=== PATIENT | male | born 1995 | race Caucasian/White ===

== ENCOUNTER 2020-08-17 20:07 | Emergency (ER) | payer OTHER ==
[~2020-08-17] VITALS: Ht 170.2 cm; Wt 81.6 kg
[~2020-08-17 20:07] MED LIST: AMOX-CLAV 875-125 MG TABLET
--- NOTE | 2020-08-17 20:15 | NUR ---
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 PATIENT IS A/OX 4, RR EVEN AND UNLABORED, NO SOB NOTED AT THIS TIME. PATIENT CONNECTED TO [employer] AND POX. WILL CONTINUE TO MONITOR.
[2020-08-17] MEDS: KETOROLAC TROMETHAMINE INJ 30 MG/ML VIAL IV ONE (21:41)
[2020-08-17] MEDS: IV NS 0.9% 1,000 ML BAG IV ONE (21:42)
[2020-08-17 21:58] LABS: BASOPHILS % (AUTO) 0.4 % (0.0-2.0); EOSINOPHILS % (AUTO) 0.4 % (0.0-6.0); HEMATOCRIT 42 % (39-51); HEMOGLOBIN 14.2 g/dL (13.5-17.5); LYMPHOCYTES % (AUTO) 21.3 % (20.0-44.0); MEAN CORPUSCULAR HGB CONC 34 g/dl (31.0-36.0); MEAN CORPUSCULAR VOLUME 94 fL (80-96); MONOCYTES # (AUTO) 0.5 K/uL (0.1-1.30); MONOCYTES % (AUTO) 5.8 % (2.0-12.0); NEUTROPHILS # (AUTO) 6.7 K/uL (1.8-8.9); NEUTROPHILS % (AUTO) 72.1 % (43.0-81.0); PLATELET COUNT (AUTO) 196 K/uL (150-450); RED BLOOD CELL COUNT(AUTO) 4.43 MIL/uL (4.5-6.0); WHITE BLOOD COUNT (AUTO) 9.3 K/uL (4.3-11.0)
[2020-08-17 22:08] LABS: CALCIUM, SERUM 9.1 mg/dL (8.5-10.1); CREATININE 0.8 mg/dL (0.6-1.3); POTASSIUM 3.8 mmol/L (3.5-5.1)
[2020-08-17 22:13] LABS: ALBUMIN 4.3 g/dL (3.4-5.0); BILIRUBIN,DIRECT 0.1 mg/dL (0.0-0.2); BILIRUBIN,TOTAL 0.3 mg/dL (0.2-1.0); TOTAL PROTEIN, SERUM 8.1 g/dL (6.4-8.2)
--- NOTE | 2020-08-17 22:49 | NUR ---
US AT BEDSIDE
--- NOTE | 2020-08-17 23:15 | NUR ---
URINE SENT TO LAB
[2020-08-17] MEDS ORDERED: IBUP-1955 PO (23:27)
[2020-08-17 23:34] VITALS: BP 148/74
--- NOTE | 2020-08-17 23:34 | NUR ---
Patient discharged to home in stable condition. Written and verbal after care instructions given. Patient verbalizes understanding of instruction.
--- NOTE | 2020-08-17 23:34 | NUR ---
IV removed. Catheter intact and site benign. Pressure and 4x4 applied to site. No bleeding noted.
[2020-08-17 23:47] LABS: BILIRUBIN,URINE NEGATIVE (NEGATIVE); COLOR,URINE YELLOW (YELLOW); LEUKOCYTE ESTERASE ,URINE NEGATIVE (NEGATIVE); NITRITE, URINE NEGATIVE (NEGATIVE); PH,URINE 7.5 (5.0-8.0); PROTEIN,URINE NEGATIVE (NEGATIVE); UGLUCOSE NEGATIVE (NEGATIVE); UROBILINOGEN,URINE 0.2 EU/dL (0.2)
== END 2020-08-17 23:35 | disposition home or self-care (01) ==
LOC: ER 20:07
DX: R10.13 Epigastric pain (principal); K76.0 Fatty (change of) liver, not elsewhere classified; Z90.89 Acquired absence of other organs
CPT/HCPCS: 36415; 71045; 76705; 80048; 80076; 81003; 83690; 85025; 93005; 96360; 99285; J7030

== ENCOUNTER 2021-09-03 17:49 | Emergency (ER) | payer MEDICAID ==
[~2021-09-03] VITALS: Ht 167.6 cm; Wt 54.0 kg
[~2021-09-03 17:49] MED LIST changes: +IBUP-1955 PO
[2021-09-03] MEDS ORDERED: KETOROLAC TROMETHAMINE 15 MG/ML VIAL ONE (19:41)
--- NOTE | 2021-09-03 19:44 | NUR ---
20G IV ESTABLISHED RAC. BLOOD DRAWN AND SENT TO LAB.
--- NOTE | 2021-09-03 19:51 | NUR ---
PT TAKEN TO CT
--- NOTE | 2021-09-03 19:52 | NUR ---
PT BIBS C/O L SIDE FLANK "DISCOMFORT" SINCE YESTERDAY. DENIES HEMATURIA. AWAKE AND ALERT X4 BREATHING EVEN AND UNLABORED AMBULATORY WITH STEADY GAIT. ALL V/S WNL
[2021-09-03] MEDS ORDERED: KETOROLAC TROMETHAMINE INJ 30 MG/ML VIAL IV ONE (20:00)
[2021-09-03] MEDS ORDERED: IV NS 0.9% 1,000 ML BAG IV ONE (20:00)
[2021-09-03 20:21] LABS: BASOPHILS % (AUTO) 0.4 % (0.0-2.0); EOSINOPHILS % (AUTO) 0.4 % (0.0-6.0); HEMATOCRIT 44 % (39-51); HEMOGLOBIN 15.5 g/dL (13.5-17.5); LYMPHOCYTES # (AUTO) 1.9 K/uL (0.8-4.8); LYMPHOCYTES % (AUTO) 20.8 % (20.0-44.0); MEAN CORPUSCULAR HGB CONC 35 g/dl (31.0-36.0); MEAN CORPUSCULAR VOLUME 92 fL (80-96); MONOCYTES # (AUTO) 0.3 K/uL (0.1-1.30); MONOCYTES % (AUTO) 3.5 % (2.0-12.0); NEUTROPHILS # (AUTO) 6.9 K/uL (1.8-8.9); NEUTROPHILS % (AUTO) 74.9 % (43.0-81.0); PLATELET COUNT (AUTO) 266 K/uL (150-450); RED BLOOD CELL COUNT(AUTO) 4.83 MIL/uL (4.5-6.0); WHITE BLOOD COUNT (AUTO) 9.2 K/uL (4.3-11.0)
[2021-09-03 20:42] LABS: BILIRUBIN,URINE NEGATIVE (NEGATIVE); COLOR,URINE YELLOW (YELLOW); LEUKOCYTE ESTERASE ,URINE NEGATIVE (NEGATIVE); NITRITE, URINE NEGATIVE (NEGATIVE); PROTEIN,URINE NEGATIVE (NEGATIVE); UGLUCOSE NEGATIVE (NEGATIVE); UROBILINOGEN,URINE 0.2 EU/dL (0.2)
[2021-09-03 20:44] LABS: CALCIUM, SERUM 9.4 mg/dL (8.5-10.1); POTASSIUM 3.8 mmol/L (3.5-5.1)
[2021-09-03 20:50] LABS: ALBUMIN 4.8 g/dL (3.4-5.0); BILIRUBIN,DIRECT 0.1 mg/dL (0.0-0.2); BILIRUBIN,TOTAL 0.5 mg/dL (0.2-1.0); TOTAL PROTEIN, SERUM 9.2 g/dL (6.4-8.2)
[2021-09-03] MEDS ORDERED: NAPR-1009 PO (21:33)
--- NOTE | 2021-09-03 21:44 | NUR ---
Patient discharged to home in stable condition. RX Written and verbal after care instructions given. Patient verbalizes understanding of instruction. IV removed. Catheter intact and site benign. Pressure and 4x4 applied to site. No bleeding noted. pt ambulatory with a steady gait
[2021-09-03 21:45] VITALS: BP 139/81
== END 2021-09-03 21:45 | disposition home or self-care (01) ==
LOC: ER 18:00
DX: S39.012A Strain of muscle, fascia and tendon of lower back, initial encounter (principal); R10.2 Pelvic and perineal pain; K76.0 Fatty (change of) liver, not elsewhere classified; R74.01 Elevation of levels of liver transaminase levels; Z90.89 Acquired absence of other organs; Z79.1 Long term (current) use of non-steroidal anti-inflammatories (NSAID); X58.XXXA Exposure to other specified factors, initial encounter; Y93.89 Activity, other specified; Y92.89 Other specified places as the place of occurrence of the external cause; Y99.8 Other external cause status
CPT/HCPCS: 99284; 74176; 96374; 96361; 85025; 80048; 83690; 80076; 81003; 36415; J7030; J1885

== ENCOUNTER 2022-01-26 20:12 | Emergency (ER) | payer MEDICAID ==
[~2022-01-26] VITALS: Ht 167.6 cm; Wt 81.6 kg
[~2022-01-26 20:12] MED LIST changes: +NAPR-1009 PO
--- NOTE | 2022-01-26 21:15 | NUR ---
BIBSELF C/O PALPITATIONS AND CP X 1 WEEK. PT [id number], AMBULATORY, AND ABLE TO MAKE NEEDS KNOWN. PT ATTACHED TO MONITOR AND VITALS CHECKED. NO CHEST PAIN. NO SOB. NOT IN CP DISTRESS.
[2022-01-26 21:50] LABS: BASOPHILS % (AUTO) 0.3 % (0.0-2.0); EOSINOPHILS % (AUTO) 0.7 % (0.0-6.0); HEMATOCRIT 46 % (39-51); HEMOGLOBIN 15.5 g/dL (13.5-17.5); LYMPHOCYTES # (AUTO) 1.7 K/uL (0.8-4.8); MEAN CORPUSCULAR HGB CONC 34 g/dl (31.0-36.0); MEAN CORPUSCULAR VOLUME 95 fL (80-96); MONOCYTES # (AUTO) 0.4 K/uL (0.1-1.30); MONOCYTES % (AUTO) 5.1 % (2.0-12.0); NEUTROPHILS # (AUTO) 6.4 K/uL (1.8-8.9); NEUTROPHILS % (AUTO) 73.9 % (43.0-81.0); PLATELET COUNT (AUTO) 225 K/uL (150-450); RED BLOOD CELL COUNT(AUTO) 4.84 MIL/uL (4.5-6.0); WHITE BLOOD COUNT (AUTO) 8.7 K/uL (4.3-11.0)
--- NOTE | 2022-01-26 21:55 | NUR ---
BRANCH RETAIL EXECUTIVE AT BEDSIDE.
[2022-01-26 22:03] LABS: CARBON DIOXIDE 27 mmol/L (21-32); CHLORIDE 103 mmol/L (98-107); CREATININE 0.9 mg/dL (0.6-1.3); GLUCOSE 124 mg/dL (74-106); POTASSIUM 4.2 mmol/L (3.5-5.1); SODIUM SERUM 139 mmol/L (136-145); UREA NITROGEN, BLOOD 12 mg/dL (7-18)
--- NOTE | 2022-01-26 22:11 | NUR ---
PT REFUSED IV CANNULA
[2022-01-27] MEDS ORDERED: ACETAMINOPHEN ES 500 MG TABLET PO ONE (01:30)
[2022-01-27] MEDS ORDERED: ACETAMINOPHEN ES 500 MG TABLET ONE (01:45)
--- NOTE | 2022-01-27 02:00 | NUR ---
Patient discharged to home in stable condition. Written and verbal after care instructions given. Patient verbalizes understanding of instruction.
[2022-01-27 02:01] VITALS: BP 152/91
== END 2022-01-27 02:01 | disposition home or self-care (01) ==
LOC: ER 20:12
DX: R07.9 Chest pain, unspecified (principal); I10 Essential (primary) hypertension; Z90.89 Acquired absence of other organs; Z79.1 Long term (current) use of non-steroidal anti-inflammatories (NSAID)
CPT/HCPCS: 36415; 71045-TC; 80048-TC; 83735-TC; 84484-TC; 85025-TC

== ENCOUNTER 2023-06-01 14:55 | Emergency (ER) | payer MEDICAID ==
[~2023-06-01] VITALS: Ht 167.6 cm; Wt 79.4 kg
[2023-06-01] MEDS ORDERED: BACI3.5O23 TOP (15:22)
[2023-06-01 15:38] VITALS: BP 134/78; TEMP 98.3; O2SAT 98
== END 2023-06-01 15:39 | disposition home or self-care (01) ==
LOC: ER 14:58
DX: R21 Rash and other nonspecific skin eruption (principal); Z90.89 Acquired absence of other organs; Z79.899 Other long term (current) drug therapy; Z55.6 Problems related to health literacy